=== PATIENT | female | born 1940 | race Caucasian/White ===

== ENCOUNTER 2019-05-09 20:07 | Emergency (ER) | payer MEDICARE ==
[~2019-05-09] VITALS: Ht 152.4 cm; Wt 59.7 kg
[2019-05-09] MEDS ORDERED: HYDR12.517 PO (20:15)
[2019-05-09] MEDS ORDERED: POTASSIUM (20:15)
[2019-05-09] MEDS ORDERED: SERT50TA28 PO (20:15)
[2019-05-09] MEDS ORDERED: LEVO125T PO (20:15)
--- NOTE | 2019-05-09 20:28 | NUR ---
PATIENT PRESENTS TO ED TODAY FOR RT FLANK/BACK PAIN AND ABD DISTENTION WITH NAUSEA STARTING TODAY AT NOON, DENIES VOMITING/DIARRHEA. LAST BM TODAY, HX OF DIVERTICULITIS. PATIENT ALSO SEEING A SECTION LEADER SCREEN PRINTING FOR DIZZINESS AND SOB. FAMILY AT BEDSIDE, CALL LIGHT WITHIN REACH.
--- NOTE | 2019-05-09 20:33 | NUR ---
PA AT BEDSIDE, LOSS PREVENTION CONSULTANT ON PATIENT.
[2019-05-09] MEDS ORDERED: KETOROLAC 30 MG/1 ML IVPush ONE (21:00)
[2019-05-09] MEDS ORDERED: ONDANSETRON 2MG/ML, 2ML IVPush ONE (21:00)
[2019-05-09] MEDS ORDERED: ONDANSETRON 2MG/ML, 2ML ONE (21:06)
[2019-05-09] MEDS ORDERED: KETOROLAC 30 MG/1 ML ONE (21:07)
[2019-05-09 21:13] LABS: BASOPHILS # (AUTO) 0.09 x10^3/uL (0-0.1); BASOPHILS % (AUTO) 1 % (0-1); EOSINOPHILS # (AUTO) 0.25 x10^3/uL (0-0.4); EOSINOPHILS % (AUTO) 3 % (1-7); LYMPHOCYTES # (AUTO) 1.44 x10^3/uL (1-3.4); LYMPHOCYTES % (AUTO) 17 % (22-44); MD NO; MEAN CORPUSCULAR HEMOGLOBIN 25.1 pg (27.0-34.8); MEAN CORPUSCULAR HGB CONC 31.8 g/dL (32.4-35.8); MEAN CORPUSCULAR VOLUME 79.2 fL (80-100); MEAN PLATELET VOLUME 8.5 fL (7.4-10.4); MONOCYTES # (AUTO) 0.48 x10^3/uL (0.2-0.8); MONOCYTES % (AUTO) 6 % (2-9); NEUTROPHILS # (AUTO) 6.24 x10^3/uL (1.8-6.8); NEUTROPHILS % (AUTO) 73 % (42-75); PLATELET COUNT 442 x10^3/uL (130-400); RED BLOOD COUNT 4.56 x10^6/uL (3.82-5.3); RED CELL DISTRIBUTION WIDTH 16.8 % (9.6-15.2)
[2019-05-09] MEDS ORDERED: METHOCARBAMOL 750 MG TABLET ONE (21:14)
--- NOTE | 2019-05-09 21:17 | NUR ---
PT MEDICATED PER MAR. POC DISCUSSED. PT AND FAMILY DENY FURTHER NEEDS AT THIS TIME
[2019-05-09 21:25] LABS: ALANINE AMINOTRANSFERASE 22 U/L (12-78); ALBUMIN 3.8 g/dL (3.4-5.0); ANION GAP 11 mmol/L (5-15); CALCIUM 9.4 mg/dL (8.5-10.1); CHLORIDE 103 mmol/L (98-107); CREATININE 1.02 mg/dL (0.55-1.02)
--- NOTE | 2019-05-09 21:28 | NUR ---
UA OBTAINED AND WALKED TO LAB
[2019-05-09 21:30] LABS: ALKALINE PHOSPHATASE 79 U/L (45-117); BILIRUBIN,TOTAL 0.5 mg/dL (0.2-1.0); TOTAL PROTEIN 8.2 g/dL (6.4-8.2); TROPONIN I < 0.015 ng/mL (0.000-0.045)
[2019-05-09] MEDS ORDERED: METHOCARBAMOL 750 MG TABLET PO ONE (21:30)
--- NOTE | 2019-05-09 21:46 | NUR ---
PT TO CT NOW
[2019-05-09 21:54] LABS: MICROSCOPIC INDICATED
[2019-05-09 21:54] LABS: FREE T4 (FREE THYROXINE) 1.52 ng/dL (0.76-1.46)
[2019-05-09 21:55] LABS: CULTURE INDICATED? YES
[2019-05-09] MEDS ORDERED: CEFDINIR 300 MG CAPSULE ONE (22:37)
[2019-05-09 22:48] VITALS: BP 110/74
[2019-05-09] MEDS ORDERED: CEFDINIR 300 MG CAPSULE PO ONE (23:00)
== END 2019-05-09 23:11 | disposition home or self-care (01) ==
LOC: ED 22:26
DX: N39.0 Urinary tract infection, site not specified (principal); K57.30 Diverticulosis of large intestine without perforation or abscess without bleeding; N28.1 Cyst of kidney, acquired; I10 Essential (primary) hypertension; E78.00 Pure hypercholesterolemia, unspecified; Z90.710 Acquired absence of both cervix and uterus
CPT/HCPCS: 36415; 71045; 74177; 80053; 81001; 83690; 83880; 84439; 84443; 84481; 84484; 85025; 87077; 87086; 87186; 93005; 96374; 96375; 99284; J1885; J2405

== ENCOUNTER 2019-08-29 09:44 | Emergency (ER) | payer MEDICARE ==
[~2019-08-29] VITALS: Ht 152.4 cm; Wt 60.0 kg
[~2019-08-29 09:44] MED LIST changes: -CLOP75TA PO; -FERR325T18 PO; -GLYB2.5T2 PO; -POTA20TA89 PO; -TRIA1TAB3 PO
[2019-08-29 10:03] VITALS: BP 161/77
--- NOTE | 2019-08-29 10:07 | NUR ---
PT TO CT AT THIS TIME.
--- NOTE | 2019-08-29 10:10 | NUR ---
PT WAS A CODE 250 CALLED OVERHEAD FOR [employer] IN PARKING GARAGE WHILE LOOKING FOR HER CAR TODAY. PT THINKS THAT SHE SLIPPED ON SAND AND FELL. PT C/O R KNEE BRUISE AND SCALP BRUISE. PT STATES SHE HAS BEEN AWAKE FOR TWENTY FOUR HOURS AND HAD AN EPISODE OF DIZZINESS WELL.
[2019-08-29] MEDS ORDERED: POTA20TA89 PO (10:28)
[2019-08-29] MEDS ORDERED: TRIA1TAB3 PO (10:29)
[2019-08-29] MEDS ORDERED: GLYB2.5T2 PO (10:30)
[2019-08-29] MEDS ORDERED: CLOP75TA PO (10:30)
[2019-08-29] MEDS ORDERED: FERR325T18 PO (10:31)
[2019-08-29] MEDS ORDERED: ERYTHROMYCIN OPHTH 0.5%, 1GM RIGHTEYE ONE (11:00)
== END 2019-08-29 11:21 | disposition home or self-care (01) ==
LOC: ED 11:17
DX: S09.8XXA Other specified injuries of head, initial encounter (principal); I10 Essential (primary) hypertension; E03.9 Hypothyroidism, unspecified; Z90.710 Acquired absence of both cervix and uterus; W19.XXXA Unspecified fall, initial encounter; Y93.89 Activity, other specified; Y92.481 Parking lot as the place of occurrence of the external cause; Y99.8 Other external cause status
CPT/HCPCS: 70450; 93005; 99284

== ENCOUNTER → 2019-08-29 | Outpatient (CLI) | payer MEDICARE ==
[~2019-08-29] MED LIST: CLOP75TA PO; FERR325T18 PO; GLYB2.5T2 PO; HYDR12.517 PO; LEVO125T PO; POTA20TA89 PO; POTASSIUM; SERT50TA28 PO; TRIA1TAB3 PO
== END | disposition home or self-care (01) ==
LOC: CVU 06:58
PROVIDERS: ATTEND Internal Medicine Cardiovascular Disease
DX: I65.23 Occlusion and stenosis of bilateral carotid arteries (principal); E11.9 Type 2 diabetes mellitus without complications; I71.4 Abdominal aortic aneurysm, without rupture; R42 Dizziness and giddiness; Z98.61 Coronary angioplasty status; Z82.49 Family history of ischemic heart disease and other diseases of the circulatory system
CPT/HCPCS: 93306; 93880; 93978

== ENCOUNTER 2020-11-08 01:02 | Emergency (ER) | payer MEDICARE ==
[~2020-11-08] VITALS: Ht 154.9 cm; Wt 61.0 kg
[~2020-11-08 01:02] MED LIST changes: +CLOP75TA PO; +FERR325T18 PO; +GLYB2.5T2 PO; +POTA20TA89 PO; +TRIA1TAB3 PO
--- NOTE | 2020-11-08 01:26 | NUR ---
TASK RN: EKG DONE AND PRESENTED TO DR. SUAREZ. ALL MONITORS ARE IN PLACE.
[2020-11-08 01:46] LABS: BASOPHILS % (AUTO) 1 % (0-1); EOSINOPHILS % (AUTO) 3 % (1-7); LYMPHOCYTES % (AUTO) 20 % (22-44); MEAN CORPUSCULAR HEMOGLOBIN 28.7 pg (27.0-34.8); MEAN CORPUSCULAR HGB CONC 33.1 g/dL (32.4-35.8); MEAN PLATELET VOLUME 8.3 fL (7.4-10.4); MONOCYTES % (AUTO) 5 % (2-9); NEUTROPHILS % (AUTO) 71 % (42-75); PLATELET COUNT 324 x10^3/uL (130-400); RED BLOOD COUNT 4.87 x10^6/uL (3.82-5.3); RED CELL DISTRIBUTION WIDTH 15.3 % (9.6-15.2)
[2020-11-08 01:48] LABS: MD NO
[2020-11-08 01:55] LABS: ALANINE AMINOTRANSFERASE 27 U/L (12-78); ALBUMIN 3.5 g/dL (3.4-5.0); ANION GAP 7 mmol/L (5-15); CHLORIDE 101 mmol/L (98-107); CREATININE 1.16 mg/dL (0.55-1.02)
[2020-11-08 02:06] LABS: ALKALINE PHOSPHATASE 103 U/L (45-117); BILIRUBIN,TOTAL 0.3 mg/dL (0.2-1.0); TOTAL PROTEIN 7.7 g/dL (6.4-8.2); TROPONIN I < 0.015 ng/mL (0.000-0.045)
[2020-11-08] MEDS ORDERED: POTASSIUM CHLORIDE 20 MEQ TAB.ER.PRT PO ONE (03:30)
[2020-11-08] MEDS ORDERED: POTASSIUM CHLORIDE 20 MEQ TAB.ER.PRT ONE (03:39)
--- NOTE | 2020-11-08 03:51 | NUR ---
PT RESTING AWAITING RESULTS NO NEW COMPLAINTS....
[2020-11-08 04:36] VITALS: BP 117/54
[2020-11-08] MEDS ORDERED: OMNIPAQUE 350 MG/ML, 100ML BOTTLE ONE (04:56)
== END 2020-11-08 04:50 | disposition home or self-care (01) ==
LOC: ED 02:06
DX: S29.011A Strain of muscle and tendon of front wall of thorax, initial encounter (principal); E87.6 Hypokalemia; R06.02 Shortness of breath; R00.0 Tachycardia, unspecified; I10 Essential (primary) hypertension; Z86.39 Personal history of other endocrine, nutritional and metabolic disease; Z86.718 Personal history of other venous thrombosis and embolism; X58.XXXA Exposure to other specified factors, initial encounter; Y93.89 Activity, other specified; Y92.89 Other specified places as the place of occurrence of the external cause; Y99.8 Other external cause status
CPT/HCPCS: 36415; 71045; 71275; 80053; 84439; 84443; 84484; 85025; 93005; 99285; Q9967

== ENCOUNTER 2021-02-10 15:59 | Outpatient (CLI) | payer MEDICARE | END 2021-02-10 23:59 | disposition home or self-care (01) | LOC: CVU 15:59 | PROVIDERS: ATTEND Internal Medicine Cardiovascular Disease | DX: I65.23 Occlusion and stenosis of bilateral carotid arteries (principal) | CPT/HCPCS: 93880 ==

== ENCOUNTER → 2021-04-13 | Outpatient (CLI) | payer MEDICARE ==
[~2021-04-13] MED LIST changes: +REGADENOSON 0.4 MG/5 ML SYRINGE ONE
== END | disposition home or self-care (01) ==
LOC: CVU 10:48
PROVIDERS: ATTEND Internal Medicine Cardiovascular Disease
DX: I08.0 Rheumatic disorders of both mitral and aortic valves (principal); E11.9 Type 2 diabetes mellitus without complications; Z86.73 Personal history of transient ischemic attack (TIA), and cerebral infarction without residual deficits
CPT/HCPCS: 78452; 93017; 93306; A9502; J2785